=== PATIENT | female | born 1960 | race Caucasian/White ===

== ENCOUNTER 2019-09-14 15:26 | Inpatient (IN) ==
--- NOTE | 2019-09-14 18:04 | DR.H&P ---
H&P - History & Physical for Day of: H&P Date: 09/14/19 - Chief Complaint Chief Complaint: SOB, COUGH, SEVERE LOWER LEG SWELLING - History of Present Illness History of Present Illness: PT IS 58 WF DIRECT ADMIT FROM DR VASQUEZ OFFICE WITH CO CCC, SOB, LOWER LEG SWELLING UP TO HER THIGHS, FATIGUE AND LOSS OF APPETITE. PT WAS TESTED FOR COVID 19 ON 08/28/19 WHEN SHE HAD ONSET OF UPPER RESPIRATORY SYMPTOMS AND FEVER. PT TOOK 2 ROCEPHIN IM INJECTIONS AND COMPLETED ROUND OF ZITHROMAX AND AMOXICILLIN WITHOUT IMPROVEMENT. PT HAS HAD DIFFUSE BILATERAL LOWER EXTREMITY EDEMA WITH INCREASED REDNESS AND PAIN. PT HAS BEEN SEEN BY CARDIOLOGY AND NEPHROLOGY IN THE PAST 2 WEEKS. LASIX WAS INCREASED TO BID WITHOUT IMPROVEMENT AND CONTINUED SOB. - Past Medical History Past Medical History: Anemia, Anxiety - Family History Family Medical History: [place], Coronary Artery Disease - Social History Does patient currently use any type of tobacco product: No Have you used tobacco products in the last 12 months: No Type of Tobacco Use: None Does any household member use tobacco: No Alcohol Use: None Drug Use: None Risks, benefits, and alternatives of opioids discussed: No Prescription drug monitoring program results: PDMP reviewed and no concerns identified - Medications Home Medications: No Known Drug Allergies Allergy (Verified 02/25/18 15:06) - Review of Systems Constitutional: Weakness Eyes: No Symptoms Reported ENT: No Symptoms Reported Respiratory: Cough, Shortness of Breath Cardiovascular: Edema Gastrointestinal: Nausea, Other (LOSS OF SENSE OF TASTE, LOSS OF APPETITE) Genitourinary: Retention Musculoskeletal: Leg Pain Skin: No Symptoms Reported Neurological: Weakness - Physical Exam Vital Signs: Blood Pressure [Right Arm] 107/77 Blood Pressure 107/77 Oriented: Normal Eyes: Normal Ear: Right Nose: Injected Throat: Normal Respiratory: RLL Diminished, LLL Diminished Cardiovascular: Tachycardia, Edema (+4 BILATERAL LOWER EXTREMITY PITTING EDEMA) : Normal Auscultation: Bowel Sounds: Normal Palpation: Normal Tenderness: Normal Skin: Red, Tender (BILATERAL LOWER LEGS) Musculoskeletal: Right, Left, Thigh, Leg, Swelling, Tender Psychiatric: Anxiety Affect: Anxious Speech Pattern: Clear, Appropriate - Assessment/Plan (1) SOB (shortness of breath) Status: Acute Plan: ADMIT, R/O COVID 19. RESP CONSULT, ADMISSION LABS INCLUDING CBC CMP MAG UA. BLOOD AND SPUTUM CULTURES, ABG ON ADMISSION. SUPPLEMENTAL O2, CTA CHEST R/O PE. STRICT I&OS, IV LASIX, IV ZITHROMAX, RESP THERAPY (2) Acute bronchitis Status: Acute (3) Biliuria Status: Acute (4) Edema Qualifiers: Edema type: unspecified Qualified Code(s): R60.9 - Edema, unspecified Status: Acute - Allergies Allergies/Adverse Reactions: Allergies Allergy/AdvReac Type Severity Reaction Status Date / Time No Known Drug Allergies Allergy Verified 02/25/18 15:06
[2019-09-14 18:28] LABS: BASOPHILS # (AUTO) 0.1 X10^3/uL (0.0-0.1); BASOPHILS % (AUTO) 1.2 % (0.2-1.0); EOSINOPHILS # (AUTO) 0.5 x10^3/uL (0.0-0.2); EOSINOPHILS % (AUTO) 9.1 % (0.9-2.9); HEMATOCRIT 41.2 % (36.0-47.0); HEMOGLOBIN 13.7 g/dL (12.0-16.0); LYMPHOCYTES # (AUTO) 1.5 X10^3/uL (1.3-2.9); LYMPHOCYTES % (AUTO) 28.1 % (21.0-51.0); MEAN CORPUSCULAR HEMOGLOBIN 30.3 pg (27.0-34.0); MEAN CORPUSCULAR HGB CONC 33.2 g/dL (33.0-35.0); MEAN CORPUSCULAR VOLUME 91.4 fL (80.0-100.0); MEAN PLATELET VOLUME 8.8 fL (7.4-11.0); MONOCYTES # (AUTO) 0.5 x10^3/uL (0.3-0.8); MONOCYTES % (AUTO) 8.9 % (0.0-13.0); NEUTROPHILS # (AUTO) 2.8 x10^3/uL (2.2-4.8); NEUTROPHILS % (AUTO) 52.7 % (42.0-75.0); PLATELET COUNT 291 X10^3/uL (150.0-450.0); RED BLOOD COUNT 4.51 X10^6/uL (3.5-5.4); RED CELL DISTRIBUTION WIDTH 13.8 % (11.6-16.5); WHITE BLOOD COUNT 5.3 X10^3/uL (3.6-10.0)
[2019-09-14 18:38] LABS: ALANINE AMINOTRANSFERASE 19 Units/L (12-78); ALBUMIN 1.1 g/dL (3.4-5.0); ALKALINE PHOSPHATASE 95 Units/L (46-116); ASPARTATE AMINO TRANSFERASE 21 Units/L (15-37); BLOOD UREA NITROGEN 64 mg/dL (7-18); CALCIUM 7.8 mg/dL (8.5-10.1); CARBON DIOXIDE 21.7 mmol/L (21-32); CHLORIDE 109 mmol/L (98-107); COR CA(FOR HYPOALB) 10.1 mg/dL (8.5-10.1); CREATININE 1.73 mg/dL (0.55-1.02); SODIUM 140 mmol/L (136-145); TOTAL PROTEIN 5.3 g/dL (6.4-8.2); eGFR NON BLACK RACES 32 (>60)
[2019-09-14 18:49] LABS: ABG BASE EXCESS -6.8 mmol/L (-2.0-2.0)
[2019-09-14 18:50] LABS: ABG ALLEN TEST POS; ABG HCO3 17.3 mmol/L (22-26)
[2019-09-14 18:51] LABS: LACTIC ACID < 0.3 mmol/L (0.4-2.0)
[2019-09-14] MEDS ORDERED: NS 1000 ML 1,000 ML IV SCH (19:00)
[2019-09-14] MEDS: DUONEB 0.5 MG/3 MG (3 mL) NEB SCH ×2 (19:07→21:40)
[2019-09-14 19:13] LABS: IRON 28 ug/dL (50-175)
[2019-09-14 19:15] LABS: FREE T4 (FREE THYROXINE) 1.07 ng/dL (0.76-1.46); TSH (3RD GENERATION) 5.648 uIU/mL (0.358-3.74)
[2019-09-14 19:18] LABS: CREATINE KINASE 125 Units/L (26-192); CREATINE KINASE MB 1.2 ng/mL (0-4.0); MAGNESIUM 2.4 mg/dL (1.7-2.9); TROPONIN I < 0.02 ng/mL (0-1.5)
[2019-09-14] MEDS: ZITHROMAX INJ 500 MG VIAL 500 MG in NS 250 ML IV 250 ML IV SCH (20:00)
--- NOTE | 2019-09-14 20:21 | RAD ---
HISTORYWEAKNESS SOB EDEMA LOWER EXTSTUDYCHEST, 1 VIEWCOMPARISONNoneFINDINGSThe trachea is midline. The cardiac silhouette is unremarkable. A small left-sided pleural effusion is noted. Bibasilar atelectasis and/or infiltrate are demonstrated as well. Correlate clinically.IMPRESSIONSmall left-sided pleural effusion with bibasilar atelectasis and/or infiltrate.Electronically signed by: PAZ JORGE (Sep 14, 2019 20:21:01)
[2019-09-14] MEDS ORDERED: LASIX IVP ONE (20:41)
--- NOTE | 2019-09-14 20:59 | VAS ---
HISTORYELEVATED D-DIMER, DEMARIO LEG EDEMASTUDYLOWER EXT VENOUS, BILATERALCOMPARISONNoneTECHNIQUEMultiple guerra scale and color flow Doppler images of the deep venous system were obtained of the left lower extremity.FINDINGSThe deep venous system of the left lower extremity was evaluated from the level of the common femoral vein through the popliteal vein. Normal color flow and augmentation can be observed. In addition, normal compression is seen throughout the deep venous system. Somewhat ill-defined mixed echogenic structures seen within the soft tissues of the right thigh measuring up to approximately 2.3 cm in size may reflect enlarged lymph nodes. Recommend clinical correlation and continue follow up as indicated for further evaluation.IMPRESSIONNegative for DVT.Questionable enlarged lymph nodes involving the soft tissues of the right thigh as noted above. Correlate clinically.Electronically signed by: PAZ JORGE (Sep 14, 2019 20:58:05)
[2019-09-14 21:21] VITALS: BMI 23.2
[2019-09-14] MEDS: XANAX PO PRN (21:23)
[2019-09-14] MEDS: LASIX IVP SCH (21:25)
[2019-09-14 23:08] LABS: BILIRUBIN,URINE NEGATIVE (NEGATIVE); BLOOD/HEMOGLOBIN,URINE 3+ (NEGATIVE); GLUCOSE, URINE NEGATIVE (NEGATIVE); KETONES,URINE NEGATIVE (NEGATIVE); LEUKOCYTE ESTERASE ,URINE NEGATIVE (NEGATIVE); NITRITES,URINE NEGATIVE (NEGATIVE); PROTEIN,URINE 4+ (NEGATIVE); UROBILINOGEN,URINE NORMAL (NORMAL)
[2019-09-14 23:11] LABS: APPEARANCE,URINE CLEAR (CLEAR); COLOR,URINE STRAW (YELLOW)
[2019-09-14 23:19] LABS: BACTERIA,URINE NEGATIVE /HPF (NEGATIVE); HYALINE CASTS, URINE MANY /LPF (NEGATIVE); SQUAMOUS EPITHELIAL CELL,UR NEGATIVE /HPF (NEGATIVE)
[2019-09-15] MEDS: DUONEB 0.5 MG/3 MG (3 mL) NEB SCH ×5 (00:19→19:36)
[2019-09-15 06:18] LABS: BASOPHILS # (AUTO) 0.1 X10^3/uL (0.0-0.1); EOSINOPHILS # (AUTO) 0.8 x10^3/uL (0.0-0.2); EOSINOPHILS % (AUTO) 9.4 % (0.9-2.9); HEMATOCRIT 37.2 % (36.0-47.0); HEMOGLOBIN 12.3 g/dL (12.0-16.0); LYMPHOCYTES # (AUTO) 2.4 X10^3/uL (1.3-2.9); LYMPHOCYTES % (AUTO) 29.5 % (21.0-51.0); MEAN CORPUSCULAR VOLUME 91.1 fL (80.0-100.0); MEAN PLATELET VOLUME 9.5 fL (7.4-11.0); MONOCYTES # (AUTO) 0.9 x10^3/uL (0.3-0.8); MONOCYTES % (AUTO) 11.7 % (0.0-13.0); NEUTROPHILS # (AUTO) 3.9 x10^3/uL (2.2-4.8); NEUTROPHILS % (AUTO) 48.4 % (42.0-75.0); PLATELET COUNT 229 X10^3/uL (150.0-450.0); RED BLOOD COUNT 4.09 X10^6/uL (3.5-5.4); RED CELL DISTRIBUTION WIDTH 14.1 % (11.6-16.5)
[2019-09-15 06:31] LABS: ALANINE AMINOTRANSFERASE 12 Units/L (12-78); ALBUMIN 0.8 g/dL (3.4-5.0); ALKALINE PHOSPHATASE 81 Units/L (46-116); ASPARTATE AMINO TRANSFERASE 16 Units/L (15-37); BLOOD UREA NITROGEN 62 mg/dL (7-18); CALCIUM 7.6 mg/dL (8.5-10.1); CARBON DIOXIDE 18.1 mmol/L (21-32); CHLORIDE 113 mmol/L (98-107); COR CA(FOR HYPOALB) 10.2 mg/dL (8.5-10.1); CREATININE 1.51 mg/dL (0.55-1.02); SODIUM 141 mmol/L (136-145); TOTAL PROTEIN 4.5 g/dL (6.4-8.2); eGFR NON BLACK RACES 37 (>60)
[2019-09-15 07:10] LABS: PLATELET MORPHOLOGY COMMENT NORMAL (NORMAL)
[2019-09-15] MEDS: LASIX IVP SCH ×2 (08:24→17:19)
[2019-09-15] MEDS: ZITHROMAX INJ 500 MG VIAL 500 MG in NS 250 ML IV 250 ML IV SCH (08:25)
[2019-09-15] MEDS ORDERED: LOVENOX INJ 40 MG SYR SC SCH (11:00)
--- NOTE | 2019-09-15 11:43 | US ---
RENAL SONOGRAMHISTORY: acute nephrotic syndromeComparison: NoneTechnique: Multiple guerra scale and color flow Doppler images of the kidneys and bladder were obtained.Findings:The kidneys are normal in echogenicity.The right kidney measures 11.5 cm. No focal mass, hydronephrosis, or stones identified.The left kidney measures 11.9 cm.No focal mass, hydronephrosis, or stone identified.The bladder is grossly unremarkable.IMPRESSION:1. Unremarkable evaluation of the kidneys.Electronically signed by: MATHEW DAVISON (Sep 15, 2019 11:41:54)
[2019-09-15] MEDS: NS 1000 ML 1,000 ML IV SCH (17:19)
[2019-09-15] MEDS: HEMOCYTE-PLUS PO SCH (17:19)
[2019-09-15] MEDS ORDERED: MILK OF MAGNESIA PO PRN (20:37)
[2019-09-15] MEDS: XANAX PO PRN (20:44)
[2019-09-15] MEDS: NORCO 5/325 MG TAB PO PRN (21:00)
[2019-09-15] MEDS ORDERED: COLACE CAP 100 MG PO SCH (21:00)
[2019-09-15] MEDS: ELIQUIS PO SCH (21:43)
[2019-09-16] MEDS: DUONEB 0.5 MG/3 MG (3 mL) NEB SCH ×4 (00:20→17:35)
[2019-09-16 06:30] LABS: BASOPHILS # (AUTO) 0.1 X10^3/uL (0.0-0.1); BASOPHILS % (AUTO) 1.3 % (0.2-1.0); EOSINOPHILS # (AUTO) 0.3 x10^3/uL (0.0-0.2); EOSINOPHILS % (AUTO) 6.4 % (0.9-2.9); HEMATOCRIT 36.1 % (36.0-47.0); HEMOGLOBIN 11.9 g/dL (12.0-16.0); LYMPHOCYTES # (AUTO) 1.5 X10^3/uL (1.3-2.9); LYMPHOCYTES % (AUTO) 29.7 % (21.0-51.0); MEAN CORPUSCULAR HEMOGLOBIN 30.2 pg (27.0-34.0); MEAN CORPUSCULAR HGB CONC 32.9 g/dL (33.0-35.0); MEAN CORPUSCULAR VOLUME 91.6 fL (80.0-100.0); MEAN PLATELET VOLUME 9.9 fL (7.4-11.0); MONOCYTES # (AUTO) 0.4 x10^3/uL (0.3-0.8); MONOCYTES % (AUTO) 7.7 % (0.0-13.0); NEUTROPHILS # (AUTO) 2.8 x10^3/uL (2.2-4.8); NEUTROPHILS % (AUTO) 54.9 % (42.0-75.0); PLATELET COUNT 250 X10^3/uL (150.0-450.0); RED BLOOD COUNT 3.94 X10^6/uL (3.5-5.4); WHITE BLOOD COUNT 5.1 X10^3/uL (3.6-10.0)
[2019-09-16 06:45] LABS: ALANINE AMINOTRANSFERASE 11 Units/L (12-78); ALBUMIN 0.7 g/dL (3.4-5.0); ALKALINE PHOSPHATASE 76 Units/L (46-116); ASPARTATE AMINO TRANSFERASE 25 Units/L (15-37); BLOOD UREA NITROGEN 57 mg/dL (7-18); CALCIUM 7.5 mg/dL (8.5-10.1); CARBON DIOXIDE 18.9 mmol/L (21-32); CHLORIDE 112 mmol/L (98-107); COR CA(FOR HYPOALB) 10.1 mg/dL (8.5-10.1); CREATININE 1.68 mg/dL (0.55-1.02); SODIUM 140 mmol/L (136-145); TOTAL PROTEIN 4.5 g/dL (6.4-8.2); eGFR NON BLACK RACES 33 (>60)
[2019-09-16] MEDS: NS 1000 ML 1,000 ML IV SCH ×2 (06:47→20:59)
[2019-09-16] MEDS: LASIX IVP SCH ×3 (09:45→21:00)
[2019-09-16] MEDS: ELIQUIS PO SCH ×2 (09:45→21:00)
[2019-09-16] MEDS: HEMOCYTE-PLUS PO SCH (09:45)
[2019-09-16] MEDS: ZITHROMAX INJ 500 MG VIAL 500 MG in NS 250 ML IV 250 ML IV SCH (09:46)
[2019-09-16] MEDS ORDERED: NORCO 7.5/325 MG TAB PO ONE (11:59)
[2019-09-16] MEDS: NORCO 5/325 MG TAB PO PRN (12:57)
[2019-09-16] MEDS: RHINOCORT ALLERGY NASAL SPRAY ENOSTRIL SCH ×2 (12:57→21:00)
[2019-09-16] MEDS ORDERED: ASTELIN NASAL SPRAY ENOSTRIL ONE (14:27)
[2019-09-16] MEDS: ASTELIN NASAL SPRAY ENOSTRIL SCH ×2 (14:34→21:01)
[2019-09-16] MEDS: XANAX PO PRN (21:00)
[2019-09-17] MEDS ORDERED: SALINE 0.9% 3 ML NEB TX ONE ×2 (00:30→06:12)
[2019-09-17] MEDS: DUONEB 0.5 MG/3 MG (3 mL) NEB SCH ×2 (00:49→06:41)
[2019-09-17] MEDS: ASTELIN NASAL SPRAY ENOSTRIL SCH (05:55)
[2019-09-17] MEDS: LASIX IVP SCH (05:55)
[2019-09-17 06:24] LABS: BASOPHILS # (AUTO) 0.1 X10^3/uL (0.0-0.1); BASOPHILS % (AUTO) 1.3 % (0.2-1.0); EOSINOPHILS # (AUTO) 0.6 x10^3/uL (0.0-0.2); EOSINOPHILS % (AUTO) 11.2 % (0.9-2.9); HEMATOCRIT 37.6 % (36.0-47.0); HEMOGLOBIN 12.4 g/dL (12.0-16.0); LYMPHOCYTES # (AUTO) 1.5 X10^3/uL (1.3-2.9); LYMPHOCYTES % (AUTO) 26.6 % (21.0-51.0); MEAN CORPUSCULAR VOLUME 90.7 fL (80.0-100.0); MEAN PLATELET VOLUME 8.6 fL (7.4-11.0); MONOCYTES # (AUTO) 0.6 x10^3/uL (0.3-0.8); NEUTROPHILS # (AUTO) 2.8 x10^3/uL (2.2-4.8); NEUTROPHILS % (AUTO) 50.9 % (42.0-75.0); PLATELET COUNT 296 X10^3/uL (150.0-450.0); RED BLOOD COUNT 4.14 X10^6/uL (3.5-5.4); RED CELL DISTRIBUTION WIDTH 13.8 % (11.6-16.5); WHITE BLOOD COUNT 5.5 X10^3/uL (3.6-10.0)
[2019-09-17 06:44] LABS: ALANINE AMINOTRANSFERASE 12 Units/L (12-78); ALBUMIN 0.7 g/dL (3.4-5.0); ALKALINE PHOSPHATASE 78 Units/L (46-116); ASPARTATE AMINO TRANSFERASE 20 Units/L (15-37); BLOOD UREA NITROGEN 56 mg/dL (7-18); CALCIUM 7.6 mg/dL (8.5-10.1); CARBON DIOXIDE 19.5 mmol/L (21-32); CHLORIDE 112 mmol/L (98-107); COR CA(FOR HYPOALB) 10.2 mg/dL (8.5-10.1); CREATININE 1.53 mg/dL (0.55-1.02); SODIUM 142 mmol/L (136-145); TOTAL PROTEIN 4.4 g/dL (6.4-8.2); eGFR NON BLACK RACES 37 (>60)
[2019-09-17 08:06] VITALS: BP 134/87
[2019-09-17] MEDS ORDERED: K-DUR TAB 20 MEQ PO SCH (09:00)
[2019-09-17] MEDS ORDERED: LASIX PO SCH (09:00)
[2019-09-17] MEDS: ELIQUIS PO SCH (09:24)
[2019-09-17] MEDS: RHINOCORT ALLERGY NASAL SPRAY ENOSTRIL SCH (09:25)
[2019-09-17] MEDS: HEMOCYTE-PLUS PO SCH (09:25)
[2019-09-17] MEDS: NS 1000 ML 1,000 ML IV SCH (11:09)
== END 2019-09-17 11:30 | disposition home or self-care (01) | DRG 700 ==
LOC: OBS 17:28 → MED/SURG 19:21
PROVIDERS: ADMIT Internal Medicine; ATTEND Internal Medicine
DX: N04.9 Nephrotic syndrome with unspecified morphologic changes; R11.2 Nausea with vomiting, unspecified; Z11.59 Encounter for screening for other viral diseases; J20.8 Acute bronchitis due to other specified organisms; R60.0 Localized edema; E88.09 Other disorders of plasma-protein metabolism, not elsewhere classified; R06.02 Shortness of breath; E87.5 Hyperkalemia; R82.2 Biliuria; R59.1 Generalized enlarged lymph nodes

== ENCOUNTER 2019-09-22 12:59 | Inpatient (IN) ==
[2019-09-22] MEDS ORDERED: ZOFRAN INJ 4 MG VIAL IVP PRN (13:10)
--- NOTE | 2019-09-22 13:19 | DR.H&P ---
H&P - History & Physical for Day of: H&P Date: 09/22/19 - Chief Complaint Chief Complaint: severe swelling, nausea, diarrhea, "tired" - History of Present Illness History of Present Illness: PT IS 58 WF DIRECT ADMIT FROM DR VASQUEZ OFFICE WI TH CO SEVERE SWELLING TO BILATERAL LEGS UP TO THIGH, BUTTOCKS. PT CO NAUSEA WITH LOOSE STOOL FOR THE PAS 3-4 DAYS. PT DENIES ANY FEVER, CCC OR FLU LIKE SYMPTOMS. PT WAS DIAGNOSED WITH ACUTE NEPHROTIC SYNDROME AND TREATED INPT LAST , RELEASED ON SATURDAY 09/16 WITH LASIX PO AND ZAROXOLYN. PT WAS SEEN BY DR GRAHAM ON WEDNESDAY AND WEDNESDAY AND REFERRED FOR RENAL BIOPSY WITHOUT SCHEDULED DATE AT TH IS TIME. PT REPORTS 10 LBS WEIGHT GAIN SINCE D/C AND CANNOT EAT DUE TO NAUSEA. PT HAS NO KNOWN PMH OF DM, CAD, OR HTN. PT ADMITTED FOR TREATMENT OF ACUTE NEPHROTIC SYNDROME, DEHYDRATION, WEAKNESS. PLAN TO ARRANGE FOR TRANSFER TO TERTIARY CARE FACILITY. - Past Medical History Past Medical History: Anemia, Anxiety, Renal Disease - Family History Family Medical History: Sudden Cardiac - Social History Does patient currently use any type of tobacco product: No Have you used tobacco products in the last 12 months: No Type of Tobacco Use: None Does any household member use tobacco: No Alcohol Use: None Drug Use: None Risks, benefits, and alternatives of opioids discussed: No - Medications Home Medications: No Known Drug Allergies Allergy (Verified 02/25/18 15:06) - Review of Systems Constitutional: Weakness, Malaise Eyes: No Symptoms Reported Respiratory: Shortness of Breath Cardiovascular: Edema Gastrointestinal: Nausea, Vomiting, Diarrhea (LOOSE) Genitourinary: No Symptoms Reported Musculoskeletal: Back Pain, Leg Pain Skin: No Symptoms Reported Neurological: Weakness - Physical Exam Vital Signs: Blood Pressure [Right Arm] 134/87 Oriented: Normal Eyes: Normal Ear: Normal Nose: Normal Throat: Normal Respiratory: RLL Diminished, LLL Diminished Cardiovascular: Tachycardia : Normal Auscultation: Bowel Sounds: Normal Palpation: Normal Tenderness: Normal Skin: Tender Musculoskeletal: Right, Left, Thigh, Leg, Ankle, Foot, Swelling, Tender Psychiatric: Anxiety Affect: Anxious Speech Pattern: Clear, Appropriate - Assessment/Plan (1) Acute nephrotic syndrome Status: Acute Plan: ADMIT, ADMISSION LABS (24 URINE COLLECTED ON 09/14 >10GMS PROTEIN). EKG, CXR ON ADMISSION. STRICT I& OS, IV LASIX, LOVENOX,ABG R/O HYPOXIA. VERIFY HOME MEDICATION, TELEMETRY. ARRANGE FOR TRANSFER TO TERTIARY CARE FOR RENAL BIOPSY. PREVIOUSLY COVID NEGATIVE SCREEN 08/27 AND 09/13 (2) Dehydration Status: Acute (3) Anemia Status: Acute - Allergies Allergies/Adverse Reactions: Allergies Allergy/AdvReac Type Severity Reaction Status Date / Time No Known Drug Allergies Allergy Verified 02/25/18 15:06
[2019-09-22 16:09] LABS: ABG BASE EXCESS -6.7 mmol/L (-2.0-2.0)
[2019-09-22 16:10] LABS: ABG ALLEN TEST POS; ABG HCO3 16.7 mmol/L (22-26)
[2019-09-22 16:18] LABS: BASOPHILS # (AUTO) 0.1 X10^3/uL (0.0-0.1); BASOPHILS % (AUTO) 0.9 % (0.2-1.0); EOSINOPHILS # (AUTO) 0.4 x10^3/uL (0.0-0.2); EOSINOPHILS % (AUTO) 5.6 % (0.9-2.9); HEMATOCRIT 39.3 % (36.0-47.0); HEMOGLOBIN 12.9 g/dL (12.0-16.0); LYMPHOCYTES # (AUTO) 1.3 X10^3/uL (1.3-2.9); LYMPHOCYTES % (AUTO) 18.4 % (21.0-51.0); MEAN CORPUSCULAR HEMOGLOBIN 30.1 pg (27.0-34.0); MEAN CORPUSCULAR HGB CONC 32.9 g/dL (33.0-35.0); MEAN CORPUSCULAR VOLUME 91.4 fL (80.0-100.0); MEAN PLATELET VOLUME 8.6 fL (7.4-11.0); MONOCYTES # (AUTO) 0.5 x10^3/uL (0.3-0.8); MONOCYTES % (AUTO) 7.8 % (0.0-13.0); NEUTROPHILS # (AUTO) 4.6 x10^3/uL (2.2-4.8); NEUTROPHILS % (AUTO) 67.3 % (42.0-75.0); PLATELET COUNT 319 X10^3/uL (150.0-450.0); RED CELL DISTRIBUTION WIDTH 14.2 % (11.6-16.5); WHITE BLOOD COUNT 6.8 X10^3/uL (3.6-10.0)
[2019-09-22 16:26] LABS: ALBUMIN 0.8 g/dL (3.4-5.0); CARBON DIOXIDE 21.5 mmol/L (21-32); COR CA(FOR HYPOALB) 10.6 mg/dL (8.5-10.1); CREATININE 1.71 mg/dL (0.55-1.02); MAGNESIUM 2.1 mg/dL (1.7-2.9); TOTAL PROTEIN 4.5 g/dL (6.4-8.2)
[2019-09-22 16:30] LABS: LACTIC ACID 0.8 mmol/L (0.4-2.0)
[2019-09-22] MEDS: LASIX IVP SCH ×2 (17:57→21:38)
[2019-09-22] MEDS: PROTONIX INJ 40 MG VIAL IVP SCH (18:38)
[2019-09-22] MEDS: NS 1000 ML 1,000 ML IV SCH (18:38)
[2019-09-22 20:00] LABS: BILIRUBIN,URINE NEGATIVE (NEGATIVE); BLOOD/HEMOGLOBIN,URINE 3+ (NEGATIVE); GLUCOSE, URINE 1+ (NEGATIVE); KETONES,URINE NEGATIVE (NEGATIVE); LEUKOCYTE ESTERASE ,URINE NEGATIVE (NEGATIVE); NITRITES,URINE NEGATIVE (NEGATIVE); PROTEIN,URINE 4+ (NEGATIVE); UROBILINOGEN,URINE NORMAL (NORMAL)
[2019-09-22 20:08] LABS: APPEARANCE,URINE HAZY (CLEAR); BACTERIA,URINE 1+ /HPF (NEGATIVE); COLOR,URINE YELLOW (YELLOW); GRANULAR CASTS,URINE FEW /LPF (NEGATIVE); HYALINE CASTS, URINE MODERATE /LPF (NEGATIVE); SQUAMOUS EPITHELIAL CELL,UR FEW /HPF (NEGATIVE)
[2019-09-22] MEDS: NORCO 5/325 MG TAB PO PRN (20:38)
[2019-09-22] MEDS: XANAX PO PRN (20:38)
[2019-09-22] MEDS: LOVENOX INJ 40 MG SYR SC SCH (20:41)
[2019-09-23] MEDS: LASIX IVP SCH ×3 (05:35→21:31)
[2019-09-23 06:37] LABS: BASOPHILS # (AUTO) 0.1 X10^3/uL (0.0-0.1); BASOPHILS % (AUTO) 1.4 % (0.2-1.0); EOSINOPHILS # (AUTO) 0.7 x10^3/uL (0.0-0.2); EOSINOPHILS % (AUTO) 11.8 % (0.9-2.9); HEMATOCRIT 35.8 % (36.0-47.0); HEMOGLOBIN 11.9 g/dL (12.0-16.0); LYMPHOCYTES # (AUTO) 1.9 X10^3/uL (1.3-2.9); LYMPHOCYTES % (AUTO) 32.1 % (21.0-51.0); MEAN CORPUSCULAR HEMOGLOBIN 30.2 pg (27.0-34.0); MEAN CORPUSCULAR HGB CONC 33.2 g/dL (33.0-35.0); MONOCYTES # (AUTO) 0.6 x10^3/uL (0.3-0.8); MONOCYTES % (AUTO) 9.5 % (0.0-13.0); NEUTROPHILS # (AUTO) 2.7 x10^3/uL (2.2-4.8); NEUTROPHILS % (AUTO) 45.2 % (42.0-75.0); PLATELET COUNT 273 X10^3/uL (150.0-450.0); RED BLOOD COUNT 3.93 X10^6/uL (3.5-5.4)
[2019-09-23 07:01] LABS: ALANINE AMINOTRANSFERASE 9 Units/L (12-78); ALBUMIN 0.6 g/dL (3.4-5.0); ALKALINE PHOSPHATASE 70 Units/L (46-116); ASPARTATE AMINO TRANSFERASE 14 Units/L (15-37); BLOOD UREA NITROGEN 44 mg/dL (7-18); CALCIUM 7.6 mg/dL (8.5-10.1); CARBON DIOXIDE 18.9 mmol/L (21-32); CHLORIDE 114 mmol/L (98-107); COR CA(FOR HYPOALB) 10.3 mg/dL (8.5-10.1); CREATININE 1.65 mg/dL (0.55-1.02); SODIUM 141 mmol/L (136-145); eGFR NON BLACK RACES 34 (>60)
[2019-09-23 07:33] VITALS: BMI 24.7
[2019-09-23] MEDS: LOVENOX INJ 40 MG SYR SC SCH (08:30)
[2019-09-23] MEDS: PROTONIX INJ 40 MG VIAL IVP SCH (08:30)
--- NOTE | 2019-09-23 10:20 | RAD ---
HISTORYCOUGH, SOBUDMARI, 1 [id number] trachea is midline. The cardiac silhouette is within normal limits. There are small to moderate size bilateral pleural effusions with hazy opacities overlying both lung bases. The upper lung zones are clear bilaterally. The bony thorax is grossly unremarkable.IMPRESSIONSmall to moderate-sized bilateral pleural effusions which have increased in size compared with September 14, 2019. Underlying airspace disease is not excluded.Electronically signed by: HELENA SMITH (Sep 23, 2019 10:20:08)
--- NOTE | 2019-09-23 11:16 | PCM.PROG ---
Progress Note Progress Note for Day of Date of Exam: 09/23/19 Subjective Subjective: Pt is a 58 yo f admitted for acute nephrotic syndrome awaiting transfer to tertiary care center for further evaluation and treatment. This morning she is reporting persistent cough. Will get CXR to evaluate. Labs/imaging:Wbc 6, Hgb 11.9, Plt 273, Na 141, K 4.1, Cr 1.71>1.65, Gluc 87. She is receiving IV lasix 40mg TID. Continuing home medications. Will continue to monitor and follow up labs/imaging in the morning. Past Medical Family Social History Past Med/Fam/Surg Hx: No changes since H&P Allergies: Allergies No Known Drug Allergies Allergy (Verified 02/25/18 15:06) Review of Systems ROS: No change since H&P Vital Signs and I&O's Vital Signs: Temperature 98 F Pulse Rate [Right Brachial] 86 Respiratory Rate 20 Blood Pressure [Right Arm] 153/95 O2 Sat by Pulse Oximetry 96 Intake and Output: Intake & Output 09/20/19 09/21/19 09/22/19 09/23/19 23:59 23:59 23:59 23:59 Intake Total 750 / 750 290 / 290 Balance 750 / 750 290 / 290 Physical Exam Oriented: Normal Eyes: Normal Ear: Normal Nose: Normal Throat: Normal Respiratory: Inferior and Rales Cardiovascular: Tachycardia : Normal Auscultation: Bowel Sounds: Normal Tenderness: Normal Skin: Tender Musculoskeletal: Right, Left, Thigh, Leg, Ankle, Foot, Swelling and Tender Psychiatric: Anxiety Affect: Anxious Speech Pattern: Clear Laboratory and Diagnostics Result Diagrams: 09/23/19 05:56 09/23/19 05:56 Labs: 09/22/19 19:15 Urine,Clean Catch Urine Culture - Preliminary Laboratory WBC 6.0 X10^3/uL (3.6-10.0) 09/23/19 05:56 RBC 3.93 X10^6/uL (3.5-5.4) 09/23/19 05:56 Hgb 11.9 g/dL (12.0-16.0) L 09/23/19 05:56 Hct 35.8 % (36.0-47.0) L 09/23/19 05:56 MCV 91.0 fL (80.0-100.0) 09/23/19 05:56 MCH 30.2 pg (27.0-34.0) 09/23/19 05:56 MCHC 33.2 g/dL (33.0-35.0) 09/23/19 05:56 RDW 14.0 % (11.6-16.5) 09/23/19 05:56 Plt Count 273 X10^3/uL (150.0-450.0) 09/23/19 05:56 MPV 9.0 fL (7.4-11.0) 09/23/19 05:56 Neut % (Auto) 45.2 % (42.0-75.0) 09/23/19 05:56 Lymph % (Auto) 32.1 % (21.0-51.0) 09/23/19 05:56 [place] % (Auto) 9.5 % (0.0-13.0) 09/23/19 05:56 Eos % (Auto) 11.8 % (0.9-2.9) H 09/23/19 05:56 Baso % (Auto) 1.4 % (0.2-1.0) H 09/23/19 05:56 Neut # (Auto) 2.7 x10^3/uL (2.2-4.8) 09/23/19 05:56 Lymph # (Auto) 1.9 X10^3/uL (1.3-2.9) 09/23/19 05:56 [place] # (Auto) 0.6 x10^3/uL (0.3-0.8) 09/23/19 05:56 Eos # (Auto) 0.7 x10^3/uL (0.0-0.2) H 09/23/19 05:56 Baso # (Auto) 0.1 X10^3/uL (0.0-0.1) 09/23/19 05:56 Absolute Nucleated RBC 0.0 /100WBC 09/23/19 05:56 D-Dimer 775 ng/mLDDU (0-239) H* 09/22/19 15:52 Sample Site Rr 09/22/19 16:05 ABG pH 7.400 (7.35-7.45) 09/22/19 16:05 ABG pCO2 27.0 mmHg (35.0-45.0) L 09/22/19 16:05 ABG pO2 76.0 mmHg (80.0-100.0) L 09/22/19 16:05 ABG HCO3 16.7 mmol/L (22-26) L* 09/22/19 16:05 ABG O2 Saturation 95.0 % (90-100) 09/22/19 16:05 ABG Base Excess -6.7 mmol/L (-2.0-2.0) L 09/22/19 16:05 Glenn Test Pos 09/22/19 16:05 A-a Gradient 40.0 mmHg 09/22/19 16:05 FiO2 21.0 09/22/19 16:05 Blood Gas Comments Lissette well cb 09/22/19 16:05 Sodium 141 mmol/L (136-145) 09/23/19 05:56 Corrected Sodium TNP 09/23/19 05:56 Potassium 4.1 mmol/L (3.5-5.1) 09/23/19 05:56 Chloride 114 mmol/L (98-107) H 09/23/19 05:56 Carbon Dioxide 18.9 mmol/L (21-32) L 09/23/19 05:56 BUN 44 mg/dL (7-18) H 09/23/19 05:56 Creatinine 1.65 mg/dL (0.55-1.02) H 09/23/19 05:56 Est GFR (MDRD) Af Amer 41 (>60) L 09/23/19 05:56 Est GFR (MDRD) Non-Af 34 (>60) L 09/23/19 05:56 Glucose 87 mg/dL (65-99) 09/23/19 05:56 Lactic Acid 0.8 mmol/L (0.4-2.0) 09/22/19 15:52 Calcium 7.6 mg/dL (8.5-10.1) L 09/23/19 05:56 Corrected Calcium 10.3 mg/dL (8.5-10.1) H 09/23/19 05:56 Magnesium 2.1 mg/dL (1.7-2.9) 09/22/19 15:52 Total Bilirubin 0.10 mg/dL (0.2-1.0) L 09/23/19 05:56 AST 14 Units/L (15-37) L 09/23/19 05:56 ALT 9 Units/L (12-78) L 09/23/19 05:56 Alkaline Phosphatase 70 Units/L (46-116) 09/23/19 05:56 Total Protein 4.0 g/dL (6.4-8.2) L 09/23/19 05:56 Albumin 0.6 g/dL (3.4-5.0) L 09/23/19 05:56 Globulin 3.4 g/dL (2.5-4.5) 09/23/19 05:56 Albumin/Globulin Ratio 0.2 Ratio (1.1-2.1) L 09/23/19 05:56 Specimen Type Clean catch urine 09/22/19 19:15 Urine Color Yellow (YELLOW) 09/22/19 19:15 Urine Appearance Hazy (CLEAR) 09/22/19 19:15 Urine pH 5.0 (5.0 - 8.0) 09/22/19 19:15 Ur Specific [place] 1.015 (1.000-1.030) 09/22/19 19:15 Urine Protein 4+ (NEGATIVE) 09/22/19 19:15 Urine Glucose (UA) 1+ (NEGATIVE) 09/22/19 19:15 Urine Ketones Negative (NEGATIVE) 09/22/19 19:15 Urine Occult Blood 3+ (NEGATIVE) 09/22/19 19:15 Urine Nitrite Negative (NEGATIVE) 09/22/19 19:15 Urine Bilirubin Negative (NEGATIVE) 09/22/19 19:15 Urine Urobilinogen Normal (NORMAL) 09/22/19 19:15 Ur Leukocyte Esterase Negative (NEGATIVE) 09/22/19 19:15 Urine RBC 5-10 /HPF (0-3) A 09/22/19 19:15 Urine WBC 3-5 /HPF (0-5) 09/22/19 19:15 Ur Squamous Epith Cells Few /HPF (NEGATIVE) 09/22/19 19:15 Urine Bacteria 1+ /HPF (NEGATIVE) 09/22/19 19:15 Hyaline Casts Moderate /LPF (NEGATIVE) 09/22/19 19:15 Granular Casts Few /LPF (NEGATIVE) 09/22/19 19:15 Ur Culture Indicated? Yes/culture set up 09/22/19 19:15 Plan (1) Acute nephrotic syndrome: Status: Acute Plan: ADMIT, ADMISSION LABS (24 URINE COLLECTED ON 09/14 >10GMS PROTEIN) EKG, CXR ON ADMISSION STRICT I& OS, IV LASIX, LOVENOX,ABG R/O HYPOXIA VERIFY HOME MEDICATION, TELEMETRY ARRANGE FOR TRANSFER TO TERTIARY CARE FOR RENAL BIOPSY PREVIOUSLY COVID NEGATIVE SCREEN 08/27 AND 09/13 (2) Dehydration: Status: Acute (3) Anemia: Status: Acute
[2019-09-23] MEDS ORDERED: HYCODAN SYRUP PO PRN (11:21)
[2019-09-23] MEDS: TESSALON PERLES PO PRN ×2 (13:05→21:33)
[2019-09-23] MEDS: NS 1000 ML 1,000 ML IV SCH (15:37)
[2019-09-23] MEDS: NORCO 5/325 MG TAB PO PRN (20:00)
[2019-09-23] MEDS: XANAX PO PRN (20:00)
[2019-09-24] MEDS: LASIX IVP SCH ×3 (06:03→21:00)
[2019-09-24 06:21] LABS: BASOPHILS # (AUTO) 0.1 X10^3/uL (0.0-0.1); BASOPHILS % (AUTO) 1.5 % (0.2-1.0); EOSINOPHILS # (AUTO) 0.5 x10^3/uL (0.0-0.2); EOSINOPHILS % (AUTO) 8.3 % (0.9-2.9); HEMATOCRIT 38.9 % (36.0-47.0); HEMOGLOBIN 12.9 g/dL (12.0-16.0); LYMPHOCYTES # (AUTO) 1.6 X10^3/uL (1.3-2.9); LYMPHOCYTES % (AUTO) 26.6 % (21.0-51.0); MEAN CORPUSCULAR HEMOGLOBIN 30.2 pg (27.0-34.0); MEAN CORPUSCULAR HGB CONC 33.3 g/dL (33.0-35.0); MEAN CORPUSCULAR VOLUME 90.8 fL (80.0-100.0); MEAN PLATELET VOLUME 9.4 fL (7.4-11.0); MONOCYTES # (AUTO) 0.5 x10^3/uL (0.3-0.8); MONOCYTES % (AUTO) 8.5 % (0.0-13.0); NEUTROPHILS # (AUTO) 3.3 x10^3/uL (2.2-4.8); NEUTROPHILS % (AUTO) 55.1 % (42.0-75.0); PLATELET COUNT 273 X10^3/uL (150.0-450.0); RED BLOOD COUNT 4.28 X10^6/uL (3.5-5.4)
[2019-09-24 06:37] LABS: ALANINE AMINOTRANSFERASE 9 Units/L (12-78); ALBUMIN 0.6 g/dL (3.4-5.0); ALKALINE PHOSPHATASE 73 Units/L (46-116); ASPARTATE AMINO TRANSFERASE 15 Units/L (15-37); BLOOD UREA NITROGEN 41 mg/dL (7-18); CALCIUM 7.8 mg/dL (8.5-10.1); CARBON DIOXIDE 20.1 mmol/L (21-32); CHLORIDE 114 mmol/L (98-107); COR CA(FOR HYPOALB) 10.5 mg/dL (8.5-10.1); CREATININE 1.58 mg/dL (0.55-1.02); SODIUM 143 mmol/L (136-145); TOTAL PROTEIN 4.1 g/dL (6.4-8.2); eGFR NON BLACK RACES 36 (>60)
[2019-09-24] MEDS: LOVENOX INJ 40 MG SYR SC SCH (08:26)
[2019-09-24] MEDS: NORCO 5/325 MG TAB PO PRN ×2 (08:27→21:00)
[2019-09-24] MEDS: PROTONIX INJ 40 MG VIAL IVP SCH (08:27)
[2019-09-24] MEDS: XANAX PO PRN ×2 (08:28→21:00)
[2019-09-24] MEDS: TESSALON PERLES PO PRN ×2 (08:28→21:00)
--- NOTE | 2019-09-24 10:53 | PCM.PROG ---
Progress Note Progress Note for Day of Date of Exam: 09/24/19 Subjective Subjective: Pt is a 58 yo f admitted for acute nephrotic syndrome awaiting transfer to tertiary care center for further evaluation and treatment. This morning she reports feeling about the same. She did have a CXR yesterday for persistent cough that showed Small to moderate-sized bilateral pleural effus ions. She is on IV lasix 40mg TID and is having good urine output with also improvement in edema of BLE. Labs/imaging: Wbc 6, Hgb 12.9, Plt 273, Na 143, K 3.6, Cr 1.65>1.58, Gluc 87. Continue treatment course and follow up labs/imaging in the morning. Past Medical Family Social History Past Med/Fam/Surg Hx: No changes since H&P Allergies: Allergies No Known Drug Allergies Allergy (Verified 02/25/18 15:06) Review of Systems ROS: No change since H&P Vital Signs and I&O's Vital Signs: Temperature 98.3 F Pulse Rate [Right Brachial] 91 Respiratory Rate 18 Blood Pressure [Right Arm] 150/87 O2 Sat by Pulse Oximetry 95 Intake and Output: Intake & Output 09/21/19 09/22/19 09/23/19 09/24/19 23:59 23:59 23:59 23:59 Intake Total 750 / 750 1520 / 1520 220 / 220 Balance 750 / 750 1520 / 1520 220 / 220 Physical Exam Oriented: Normal Eyes: Normal Ear: Normal Nose: Normal Throat: Normal Respiratory: Inferior and Rales Cardiovascular: Tachycardia : Normal Auscultation: Bowel Sounds: Normal Tenderness: Normal Skin: Tender Musculoskeletal: Right, Left, Thigh, Leg, Ankle, Foot, Swelling and Tender Psychiatric: Anxiety Affect: Anxious Speech Pattern: Clear Laboratory and Diagnostics Result Diagrams: 09/24/19 05:35 09/24/19 05:35 Labs: 09/22/19 19:15 Urine,Clean Catch Urine Culture - Final 09/22/19 16:02 Blood Blood Culture - Preliminary 09/22/19 15:52 Blood Blood Culture - Preliminary Laboratory WBC 6.0 X10^3/uL (3.6-10.0) 09/24/19 05:35 RBC 4.28 X10^6/uL (3.5-5.4) 09/24/19 05:35 Hgb 12.9 g/dL (12.0-16.0) 09/24/19 05:35 Hct 38.9 % (36.0-47.0) 09/24/19 05:35 MCV 90.8 fL (80.0-100.0) 09/24/19 05:35 MCH 30.2 pg (27.0-34.0) 09/24/19 05:35 MCHC 33.3 g/dL (33.0-35.0) 09/24/19 05:35 RDW 14.0 % (11.6-16.5) 09/24/19 05:35 Plt Count 273 X10^3/uL (150.0-450.0) 09/24/19 05:35 MPV 9.4 fL (7.4-11.0) 09/24/19 05:35 Neut % (Auto) 55.1 % (42.0-75.0) 09/24/19 05:35 Lymph % (Auto) 26.6 % (21.0-51.0) 09/24/19 05:35 [place] % (Auto) 8.5 % (0.0-13.0) 09/24/19 05:35 Eos % (Auto) 8.3 % (0.9-2.9) H 09/24/19 05:35 Baso % (Auto) 1.5 % (0.2-1.0) H 09/24/19 05:35 Neut # (Auto) 3.3 x10^3/uL (2.2-4.8) 09/24/19 05:35 Lymph # (Auto) 1.6 X10^3/uL (1.3-2.9) 09/24/19 05:35 [place] # (Auto) 0.5 x10^3/uL (0.3-0.8) 09/24/19 05:35 Eos # (Auto) 0.5 x10^3/uL (0.0-0.2) H 09/24/19 05:35 Baso # (Auto) 0.1 X10^3/uL (0.0-0.1) 09/24/19 05:35 Absolute Nucleated RBC 0.0 /100WBC 09/24/19 05:35 D-Dimer 775 ng/mLDDU (0-239) H* 09/22/19 15:52 Sample Site Rr 09/22/19 16:05 ABG pH 7.400 (7.35-7.45) 09/22/19 16:05 ABG pCO2 27.0 mmHg (35.0-45.0) L 09/22/19 16:05 ABG pO2 76.0 mmHg (80.0-100.0) L 09/22/19 16:05 ABG HCO3 16.7 mmol/L (22-26) L* 09/22/19 16:05 ABG O2 Saturation 95.0 % (90-100) 09/22/19 16:05 ABG Base Excess -6.7 mmol/L (-2.0-2.0) L 09/22/19 16:05 Glenn Test Pos 09/22/19 16:05 A-a Gradient 40.0 mmHg 09/22/19 16:05 FiO2 21.0 09/22/19 16:05 Blood Gas Comments Lissette well cb 09/22/19 16:05 Sodium 143 mmol/L (136-145) 09/24/19 05:35 Corrected Sodium TNP 09/24/19 05:35 Potassium 3.6 mmol/L (3.5-5.1) 09/24/19 05:35 Chloride 114 mmol/L (98-107) H 09/24/19 05:35 Carbon Dioxide 20.1 mmol/L (21-32) L 09/24/19 05:35 BUN 41 mg/dL (7-18) H 09/24/19 05:35 Creatinine 1.58 mg/dL (0.55-1.02) H 09/24/19 05:35 Est GFR (MDRD) Af Amer 43 (>60) L 09/24/19 05:35 Est GFR (MDRD) Non-Af 36 (>60) L 09/24/19 05:35 Glucose 87 mg/dL (65-99) 09/24/19 05:35 Lactic Acid 0.8 mmol/L (0.4-2.0) 09/22/19 15:52 Calcium 7.8 mg/dL (8.5-10.1) L 09/24/19 05:35 Corrected Calcium 10.5 mg/dL (8.5-10.1) H 09/24/19 05:35 Magnesium 2.0 mg/dL (1.7-2.9) 09/24/19 05:35 Total Bilirubin 0.10 mg/dL (0.2-1.0) L 09/24/19 05:35 AST 15 Units/L (15-37) 09/24/19 05:35 ALT 9 Units/L (12-78) L 09/24/19 05:35 Alkaline Phosphatase 73 Units/L (46-116) 09/24/19 05:35 Total Protein 4.1 g/dL (6.4-8.2) L 09/24/19 05:35 Albumin 0.6 g/dL (3.4-5.0) L 09/24/19 05:35 Globulin 3.5 g/dL (2.5-4.5) 09/24/19 05:35 Albumin/Globulin Ratio 0.2 Ratio (1.1-2.1) L 09/24/19 05:35 Specimen Type Clean catch urine 09/22/19 19:15 Urine Color Yellow (YELLOW) 09/22/19 19:15 Urine Appearance Hazy (CLEAR) 09/22/19 19:15 Urine pH 5.0 (5.0 - 8.0) 09/22/19 19:15 Ur Specific [place] 1.015 (1.000-1.030) 09/22/19 19:15 Urine Protein 4+ (NEGATIVE) 09/22/19 19:15 Urine Glucose (UA) 1+ (NEGATIVE) 09/22/19 19:15 Urine Ketones Negative (NEGATIVE) 09/22/19 19:15 Urine Occult Blood 3+ (NEGATIVE) 09/22/19 19:15 Urine Nitrite Negative (NEGATIVE) 09/22/19 19:15 Urine Bilirubin Negative (NEGATIVE) 09/22/19 19:15 Urine Urobilinogen Normal (NORMAL) 09/22/19 19:15 Ur Leukocyte Esterase Negative (NEGATIVE) 09/22/19 19:15 Urine RBC 5-10 /HPF (0-3) A 09/22/19 19:15 Urine WBC 3-5 /HPF (0-5) 09/22/19 19:15 Ur Squamous Epith Cells Few /HPF (NEGATIVE) 09/22/19 19:15 Urine Bacteria 1+ /HPF (NEGATIVE) 09/22/19 19:15 Hyaline Casts Moderate /LPF (NEGATIVE) 09/22/19 19:15 Granular Casts Few /LPF (NEGATIVE) 09/22/19 19:15 Ur Culture Indicated? Yes/culture set up 09/22/19 19:15 Plan (1) Acute nephrotic syndrome: Status: Acute Plan: ADMIT, ADMISSION LABS (24 URINE COLLECTED ON 09/14 >10GMS PROTEIN) EKG, CXR ON ADMISSION STRICT I& OS, IV LASIX, LOVENOX,ABG R/O HYPOXIA VERIFY HOME MEDICATION, TELEMETRY ARRANGE FOR TRANSFER TO TERTIARY CARE FOR RENAL BIOPSY PREVIOUSLY COVID NEGATIVE SCREEN 08/27 AND 09/13 (2) Dehydration: Status: Acute (3) Anemia: Status: Acute
[2019-09-24] MEDS: NS 1000 ML 1,000 ML IV SCH (13:23)
[2019-09-24] MEDS ORDERED: COLACE CAP 100 MG PO ONE (20:00)
[2019-09-24] MEDS ORDERED: MILK OF MAGNESIA ONE (20:01)
[2019-09-24] MEDS ORDERED: MILK OF MAGNESIA PO SCH (21:00)
[2019-09-24] MEDS ORDERED: COLACE CAP 100 MG PO SCH (21:00)
[2019-09-25] MEDS: LASIX IVP SCH (05:53)
[2019-09-25 06:36] LABS: BASOPHILS # (AUTO) 0.1 X10^3/uL (0.0-0.1); BASOPHILS % (AUTO) 1.4 % (0.2-1.0); EOSINOPHILS # (AUTO) 0.5 x10^3/uL (0.0-0.2); EOSINOPHILS % (AUTO) 9.6 % (0.9-2.9); HEMATOCRIT 38.9 % (36.0-47.0); HEMOGLOBIN 12.9 g/dL (12.0-16.0); LYMPHOCYTES # (AUTO) 1.7 X10^3/uL (1.3-2.9); LYMPHOCYTES % (AUTO) 34.2 % (21.0-51.0); MEAN CORPUSCULAR HEMOGLOBIN 29.9 pg (27.0-34.0); MEAN CORPUSCULAR HGB CONC 33.1 g/dL (33.0-35.0); MEAN CORPUSCULAR VOLUME 90.6 fL (80.0-100.0); MEAN PLATELET VOLUME 9.4 fL (7.4-11.0); MONOCYTES # (AUTO) 0.4 x10^3/uL (0.3-0.8); MONOCYTES % (AUTO) 8.5 % (0.0-13.0); NEUTROPHILS # (AUTO) 2.3 x10^3/uL (2.2-4.8); NEUTROPHILS % (AUTO) 46.3 % (42.0-75.0); PLATELET COUNT 253 X10^3/uL (150.0-450.0); RED BLOOD COUNT 4.29 X10^6/uL (3.5-5.4); RED CELL DISTRIBUTION WIDTH 14.2 % (11.6-16.5); WHITE BLOOD COUNT 5.1 X10^3/uL (3.6-10.0)
[2019-09-25 06:50] LABS: ALANINE AMINOTRANSFERASE 8 Units/L (12-78); ALBUMIN 0.6 g/dL (3.4-5.0); ALKALINE PHOSPHATASE 75 Units/L (46-116); ASPARTATE AMINO TRANSFERASE 20 Units/L (15-37); BLOOD UREA NITROGEN 42 mg/dL (7-18); CALCIUM 7.7 mg/dL (8.5-10.1); CARBON DIOXIDE 20.4 mmol/L (21-32); CHLORIDE 114 mmol/L (98-107); COR CA(FOR HYPOALB) 10.4 mg/dL (8.5-10.1); CREATININE 1.58 mg/dL (0.55-1.02); SODIUM 143 mmol/L (136-145); TOTAL PROTEIN 4.1 g/dL (6.4-8.2); eGFR NON BLACK RACES 36 (>60)
[2019-09-25] MEDS: PROTONIX INJ 40 MG VIAL IVP SCH (08:44)
[2019-09-25] MEDS: LOVENOX INJ 40 MG SYR SC SCH (08:44)
--- NOTE | 2019-09-25 09:48 | RAD ---
HISTORYTachypneaSTUDYChest AP [id number] heart is within normal limits in size. The lisbeth are normal. Haziness in both lower lung hernández is likely due to pleural effusions which are increased in size when compared with the prior examination. Underlying infiltrate particularly on the left cannot be excluded. The upper lung hernández are clear. Bony thorax is unremarkable.IMPRESSIONIncreasing bilateral pleural effusions. Underlying infiltrate cannot be excluded particularly on the leftElectronically signed by: AZUL MATHEWS (Sep 25, 2019 09:47:20)
[2019-09-25] MEDS ORDERED: K-DUR TAB 20 MEQ PO ONE (11:26)
[2019-09-25] MEDS: NORCO 5/325 MG TAB PO PRN (11:35)
[2019-09-25] MEDS: XANAX PO PRN (11:36)
[2019-09-25] MEDS ORDERED: K-DUR TAB 20 MEQ PO SCH (12:00)
[2019-09-25 12:14] VITALS: BP 140/85
[2019-09-25] MEDS ORDERED: DUONEB 0.5 MG/3 MG (3 mL) NEB SCH (13:00)
--- NOTE | 2019-11-01 08:08 | DR.CARTERD ---
- Discharge Summary for: Discharge Summary for Date of:: 09/25/19 - Admission Date Date of Admission: 09/22/19 - Admission Diagnoses Admission Diagnosis: Acute Nephrotic Syndrome - Discharge Date Discharge Date: 09/25/19 - Discharge Diagnoses Discharge Diagnosis: ACUTE NEPHROTIC SYNDROME DEHYDRATION ANEMIA - Hospital Course Hospital Course: PT IS 58 WF DIRECT ADMIT FROM DR VASQUEZ OFFICE WITH CO SEVERE SWELLING TO BILATERAL LEGS UP TO THIGH, BUTTOCKS. PT CO NAUSEA WITH LOOSE STOOL FOR THE PAS 3-4 DAYS. PT DENIES ANY FEVER, CCC OR FLU LIKE SYMPTOMS. PT WAS DIAGNOSED WITH ACUTE NEPHROTIC SYNDROME AND TREATED INPT LAST WEEKEND, RELEASED ON SATURDAY 09/16 WITH LASIX PO AND ZAROXOLYN. PT WAS SEEN BY DR GRAHAM ON WEDNESDAY AND WEDNESDAY AND REFERRED FOR RENAL BIOPSY WITHOUT SCHEDULED DATE AT THIS TIME. PT REPORTS 10 LBS WEIGHT GAIN SINCE D/C AND CANNOT EAT DUE TO NAUSEA. PT HAS NO KNOWN PMH OF DM, CAD, OR HTN. PT ADMITTED FOR TREATMENT OF ACUTE NEPHROTIC SYNDROME, DEHYDRATION, WEAKNESS. PATIENT FOR TRANSFER TO [facility] - Discharge Medications Discharge Medications: Home Medication List metolazone 5 mg PO DAILY 09/22/19 [History] Prescriptions: - Discharge [facility] Discharge Diagnoses Health Concerns: Post Hospitalization: new medications and changes needed to prevent readmission or further decline. Pt educated and given instructions on all concerns. Plan of Treatment: Continue with present treatment and follow up plan. Pt is to keep follow up appointment as instructed and take medications as ordered.
== END 2019-09-25 12:30 | disposition short-term general hospital (02) | DRG 699 ==
LOC: MED/SURG 14:18
PROVIDERS: ADMIT Internal Medicine; ATTEND Internal Medicine
DX: N04.9 Nephrotic syndrome with unspecified morphologic changes; R60.0 Localized edema; R19.7 Diarrhea, unspecified; E86.0 Dehydration; J90 Pleural effusion, not elsewhere classified; D64.89 Other specified anemias